=== PATIENT | male | born 1995 | race Caucasian/White ===

== ENCOUNTER → 2017-12-05 13:56 | Emergency (ER) | payer MEDICAID ==
[~2017-12-05 13:56] MED LIST: Dextrose 50% Syringe 50 ML* 25 GM/50 ML SYRINGE IV PUSH PRN; Insulin LISPRO* 1 UNITS UNIT SUBCUT ONE
--- NOTE | 2017-12-05 14:46 | ED ---
Psychiatric Complaint - HPI Summary HPI Summary: This is scribe Riki Gilman documenting for attending Dr. Sam Means MD. This patient is a 22 year old M [facility] by a female with a chief complaint of depression since 4 days ago. The patient rates the pain 4/10 in severity. Pt did an intake at the mental health clinic 4 days ago and has a scheduled appointment in 4 days. Today the patient went to the flow specialist for concerns about his health and was taken here. Pt is holding his throat and mumbling during the exam. PMHx DM, Depression. I, Dr. Means, personally performed the services described in this documentation as scribed in my presence and it is both accurate and complete. - History Of Current Complaint Chief Complaint: EDGeneral Time Seen by Provider: 12/05/17 14:38 Hx Obtained From: Patient Onset/Duration: Gradual Onset Timing: Constant Severity Initially: Moderate Severity Currently: Moderate Character: Depressed - Allergies/Home Medications Allergies/Adverse Reactions: Allergies Allergy/AdvReac Type Severity Reaction Status Date / Time No Known Allergies Allergy Verified 07/31/17 11:49 Home Medications: Home Medications Insulin ASPART (NF) [Novolog (NF)] 3 - 10 units SUBCUT TID 12/05/17 [History Confirmed 12/05/17] Insulin Degludec [Tresiba Flextouch U-100] 25 unit SUBCUT BEDTIME 12/05/17 [ History Confirmed 12/05/17] PMH/Surg Hx/FS Hx/Imm Hx Endocrine/Hematology History: Reports: Hx Diabetes Cardiovascular History: Denies: Hx Hypertension History: Denies: Hx Dialysis, Hx Renal Disease Psychiatric History: Reports: Hx Depression - Cancer History Cancer Type, Location and Year: Left testicular CA Hx Hematologic Symptoms: No Hx Chemotherapy: Yes Hx Radiation Therapy: No Hx Palliative Cancer Treatment: No - Surgical History Surgery Procedure, Year, and Place: Left testicular 2016 Infectious Disease History: Yes Infectious Disease History: Denies: Traveled Outside the [place] in Last 30 Days - Family History Known Family History: Positive: Diabetes - Social History Alcohol Use: None Substance Use Type: Reports: None Smoking Status (MU): Never Smoked Tobacco Review of Systems Negative: Fever Positive: Other - pt holding throat when he talks Positive: Depressed All Other Systems Reviewed And Are Negative: Yes Physical Exam - Summary Physical Exam Summary: Appearance: The patient is well-nourished in no acute distress and in no acute pain. Skin: The skin is warm and dry and skin color reflects adequate perfusion. HEENT: The head is normocephalic and atraumatic. The pupils are equal and reactive. The conjunctivae are clear and without drainage. Nares are patent and without drainage. Mouth reveals moist mucous membranes and the throat is without erythema and exudate. The external ears are intact. The ear canals are patent and without drainage. The tympanic membranes are intact. Neck: The neck is supple with full range of motion and non-tender. There are no carotid bruits. There is no neck vein distension. Respiratory: Chest is non-tender. Lungs are clear to auscultation and breath sounds are symmetrical and equal. Cardiovascular: Heart is regular rate and rhythm. There is no murmur or rub auscultated. There is no peripheral edema and pulses are symmetrical and equal. Abdomen: The abdomen is soft and non-tender. There are normal bowel sounds heard in all four quadrants and there is no organomegaly palpated. Musculoskeletal: There is no back tenderness noted. Extremities are non-tender with full range of motion. There is good capillary refill. There is no peripheral edema or calf tenderness elicited. Neurological: Patient is alert and oriented to person, place and time. The patient has symmetrical motor strength in all four extremities. Cranial nerves are grossly intact. Deep tendon reflexes are symmetrical and equal in all four extremities. Psychiatric: The patient has an appropriate affect. Triage Information Reviewed: Yes Vital Signs On Initial Exam: Initial Vitals Temp Pulse Resp BP Pulse Ox 98.9 F 86 16 140/86 99 12/05/17 14:05 12/05/17 14:05 12/05/17 14:05 12/05/17 14:05 12/05/17 14:05 Vital Signs Reviewed: Yes Diagnostics - Vital Signs Vital Signs Temp Pulse Resp BP Pulse Ox 12/05/17 14:05 98.9 F 86 16 140/86 99 - Laboratory Result Diagrams: 12/05/17 15:20 12/05/17 15:20 Lab Statement: Any lab studies that have been ordered have been reviewed, and results considered in the medical decision making process. Course/Dx - Course Course Of Treatment: Mr. Bills presented to the emergency department with depression from the flow specialist's office. He has been getting diabetic education. He has apparently gotten overwhelmed and depressed and came in requesting a psychiatric evaluation but denying suicidal ideation. His blood sugar was a little high and he had a small meal here and he was covered with his normal dose of insulin. He was medically cleared and underwent a mental health eval. They felt that he was stable for discharge and follow-up - Differential Dx/Clinical Impression Provider Diagnosis: Major depressive disorder, recurrent, unspecified Discharge - Sign-Out/Discharge Documenting (check all that apply): Patient Departure - discharge - Discharge Plan Condition: Stable Disposition: HOME Patient Education Materials: Depression (ED) Referrals: Erik Barry NP [Primary Care Provider] - Additional Instructions: Per completion of a mental health evaluation, you are cleared for release and do not require inpatient psychiatric hospitalization at this time. Please go to nearest emergency room or call 911 if safety concerns arise or condition worsens. Important Phone Numbers: [facility] ph:[phone] Su[facility] Prevention [facility] Crisis Services ph:[phone] National Suicide Prevention Lifeline ph:[phone] ([phone]) [facility] ph:[phone] Alcoholics Anonymous ph:[phone] [facility] ph:[phone] [place] [employer] ph:[phone] RECOMMENDATION: Continue working with [employer] and follow up with [facility] on Friday . Return to emergency department if symptoms worsen or you think of harming yourself or others. - Billing Disposition and Condition Condition: STABLE Disposition: Home
[2017-12-05 15:25] LABS: ABS Basophils 0.1 10^3/ul (0-0.2); ABS Eosinophils 0.1 10^3/ul (0-0.6); ABS Lymphocytes 1.3 10^3/ul (1.0-4.8); ABS Monocytes 0.3 10^3/ul (0-0.8); ABS Neutrophils 2.8 10^3/ul (1.5-7.7); ABS Nucleated RBC 0 10^3/ul; Eosinophil % 1.5 % (0-6); Hematocrit 47 % (42-52); Hemoglobin 16.1 g/dl (14.0-18.0); Lymphocyte % 28.7 % (25-47); Mean Corpuscular HGB Conc 34 g/dl (31-36); Mean Corpuscular Hemoglobin 30 pg (27-31); Mean Corpuscular Volume 89 fL (80-94); Mean Platelet Volume 7.3 um3 (7.4-10.4); Nucleated Red Blood Cells % 0.1; Platelet Count 366 10^3/ul (150-450); Red Cell Distribution Width 13 % (10.5-15); White Blood Count 4.7 10^3/ul (3.5-10.8)
[2017-12-05 15:33] LABS: Urine Appearance Clear; Urine Blood Negative (Negative); Urine Color Yellow; Urine Ketones 1+ (Negative); Urine Protein Negative (Negative); Urine Specific Gravity 1.025 (1.010-1.030); Urine Urobilinogen Negative (Negative)
[2017-12-05 15:48] LABS: EGFR Non-African American 118.8 (>60)
[2017-12-05 19:29] VITALS: BP 127/74
== END | disposition home or self-care (01) ==
LOC: ED 13:56
DX: F33.9 Major depressive disorder, recurrent, unspecified (principal); E11.9 Type 2 diabetes mellitus without complications; Z85.47 Personal history of malignant neoplasm of testis
CPT/HCPCS: 36415; 80053; 80307; 80320; 80329; 81003; 84443; 85025; 96372; 99284; G0480